=== PATIENT | female | born 1970 | race Caucasian/White ===

== ENCOUNTER 2017-05-02 19:16 | Emergency (ER) | payer OTHER ==
[~2017-05-02] VITALS: Ht 154.9 cm; Wt 54.4 kg
[2017-05-02] MEDS ORDERED: KEFLEX500 M1 PO (19:42)
[2017-05-02] MEDS ORDERED: IBUPROFEN 600600 M1 PO (19:42)
[2017-05-02 20:11] VITALS: BP 124/67
== END 2017-05-02 20:11 | disposition home or self-care (01) ==
LOC: M.ERS 19:16
DX: S61.411A Laceration without foreign body of right hand, initial encounter (principal); W26.8XXA Contact with other sharp object(s), not elsewhere classified, initial encounter; Y93.89 Activity, other specified; Y92.89 Other specified places as the place of occurrence of the external cause; Y99.8 Other external cause status